=== PATIENT | male | born 1970 | race Caucasian/White ===

== ENCOUNTER 2022-02-07 21:20 | Emergency (ER) | payer OTHER ==
[~2022-02-07] VITALS: Ht 182.9 cm; Wt 84.8 kg
--- OUTSIDE RECORDS SUMMARY | 2022-02-07 23:08 | XMS ---
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 [place] - 2 Visits in 30 Days CARE PROVIDERS There are no care providers on record at this time. Darinel has no Care Guidelines for this patient. EJennifer VISIT COUNT (12 MO.) 5 [facility] 1 [facility] NOTE: Visits indicate total known visits. ED/C VISIT TRACKING (12 MO.) [facility] COMPLAINT: - VOMITING 02/01/2022 09:59 [facility]: [facility] DIAGNOSES: - withdrawals - Alcohol dependence, uncomplicated 01/31/2022 15:35 [facility] [place] TYPE: Emergency COMPLAINT: - withdrawals DIAGNOSES: - withdrawals 10/17/2021 10:14 [facility] TYPE: Emergency DIAGNOSES: - Alcohol dependence, uncomplicated - Nausea with vomiting, unspecified - Homelessness unspecified - Unspecified asthma, uncomplicated - Alcoholic hepatitis without ascites - Nicotine dependence, unspecified, uncomplicated 09/22/2021 15:49 [facility]: [facility] DIAGNOSES: - VOMITTING - Viral infection, unspecified 03/08/2021 09:28 [facility] [place] TYPE: Emergency DIAGNOSES: - TOOTHPAIN - Alveolitis of jaws 02/16/2021 09:31 [facility] [place] TYPE: Emergency DIAGNOSES: - DENTAL PAIN - Other specified disorders of teeth and supporting structures INPATIENT VISIT TRACKING (12 MO.) No inpatient visits to display in this time frame [email or web address]
== END 2022-02-08 05:24 | disposition home or self-care (01) ==
LOC: ED 21:20
DX: F10.139 Alcohol abuse with withdrawal, unspecified (principal)
CPT/HCPCS: 36415; 80053; 81001; 83735; 85025; J2060; J2405; J7030